=== PATIENT | male | born 2000 | race Caucasian/White ===

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

== ENCOUNTER 2022-09-10 10:09 | Emergency (ER) | payer SELFPAY ==
[~2022-09-10] VITALS: Ht 175 cm; Wt 100.0 kg
[~2022-09-10 10:09] MED LIST changes: +CYCL10TA25 PO; -CYCL10TA9 PO; +HYDR-4226 PO; -HYDR-757 PO; +NAPR-1071 PO; +NAPR-915; +NAPR-915 PO; -NAPR500T PO; -NAPR500T3; -NAPR500T3 PO; -OMEP40CA36 PO; +OMEP40CA6 PO; -SULF1TAB35 PO; +SULF1TAB38 PO
--- NOTE | 2022-09-10 10:41 | ED Cough/URI ---
General Chief Complaint: Cough/Cold/Flu Symptoms Stated Complaint: VOMITING/CHILLS/BODYACHES/SORE THROAT Nursing Triage Note: PT AMB TO RM 10 PT CO OF FEVERS, COUGH, N/V FOR 2 DAYS (ODILON WOLF) History of Present Illness Date Seen by Provider: Sep 10, 2022 Time Seen by Provider: 10:26 Initial Comments 22 yo male presents to the ED with a chief complaint of productive cough with green sputum since Sunday. He says that he has had greater than 10 episodes of nonbloody vomiting in the past two days and has been unable to keep any food or fluids down. Only has had one cup of water in the past two days. Pt reports associated subjective fever, N/V, RLQ dull abdominal pain without radiation, lightheadedness/dizziness, and SOB. Denies CP and ear pain. No sick contacts. Pt has not received flu vaccine. Has been taking Tylenol and Mucinex and his last d ose was yesterday morning at 10am. No other complaints. (ODILON WOLF) Allergies and Home Medications Allergies Coded Allergies: No Known Drug Allergies (Unverified , 10/21/14) Patient Home Medication List Home Medication List Reviewed: Yes (ODILON WOLF) Ibuprofen (Ibuprofen) 600 Mg Tablet, 600 MG PO 3 times a day Prescribed by: ALONZO MIDDLETON on 08/28/16921 [Flexeril] , 20 Twice a day Prescribed by: ALONZO MIDDLETON on 08/28/16921 Review of Systems Review of Systems Constitutional: malaise EENTM: no symptoms reported Respiratory: cough, short of breath Cardiovascular: no symptoms reported Gastrointestinal: RLQ, abdominal pain (RLQ), loss of appetite, nausea, vomiting Genitourinary: no symptoms reported Musculoskeletal: no symptoms reported Skin: no symptoms reported Psychiatric/Neurological: No Symptoms Reported Hematologic/Lymphatic: No Symptoms Reported Immunological/Allergic: no symptoms reported (ODILON WOLF) Past Yfvxwgu-Vqwpqh-Lctkgl Hx Patient Social History Tobacco Use?: Yes Tobacco type used: Cigarettes Smoking Status: Current Everyday Smoker Substance use?: Yes Substance type: Marijuana Substance frequency: Daily Alcohol Use?: No Pt feels they are or have been: No (ODILON WOLF) Immunizations Up To Date Tetanus Booster (TDap): Less than 5yrs PED Vaccines UTD: Yes Influenza Vaccine Up-to-Date: No; Not Current First/Initial COVID19 Vaccinat: YES COVID19 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 oz. [id number]; 32.00 BMI Method:Stated General Appearance: WD/WN, no apparent distress HEENT: PERRL/EOMI, normal ENT inspection, TMs normal, pharynx normal Neck: non-tender, full range of motion, supple, normal inspection Respiratory: chest non-tender, lungs clear, normal breath sounds, no respiratory distress, no accessory muscle use Cardiovascular: regular rate, rhythm, no edema, no gallop, no JVD, no murmur Gastrointestinal: normal bowel sounds, soft, no organomegaly, no pulsatile mass, tenderness (RLQ) Extremities: normal range of motion, non-tender, normal inspection, no pedal edema, no calf tenderness 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, no motor/sensory deficits, alert, normal mood/affect, oriented x 3 Skin: normal color, warm/dry Lymphatic: no adenopathy (ODILON WOLF) Progress/Results/Core Measures Suspected Sepsis SIRS Temperature: Pulse: 121 Respiratory Rate: 16 Blood Pressure 131 /62 Mean: 85 (ODILON WOLF) Results/Orders Lab Results Laboratory Tests Test 09/10/22 10:17 Range/Units Influenza Type A (RT-PCR) Detected H Not Detecte Influenza Type B (RT-PCR) Not Detected Not Detecte SARS-CoV-2 RNA (RT-PCR) Not Detected Not Detecte (JESSICA CALDWELL MD) My Orders Orders - JESSICA CALDWELL MD Covid 19 Inhouse Test (09/10/22 10:40) Influenza A And B By Pcr (09/10/22 10:40) Isolation Central Supply Req (09/10/22 10:40) Ondansetron Oral Dissolve Tab (Zofran (09/10/22 10:47) Ibuprofen Tablet (Motrin Tablet) (09/10/22 11:30) (JESSICA CALDWELL MD) Vital Signs/I&O 09/10/22 10:15 Temp 37.5 Pulse 121 Resp 16 B/P (MAP) 131/62 (85) Pulse Ox 96 O2 Delivery Room Air (JESSICA CALDWELL MD) Vital Signs/I&O Capillary Refill : Less Than 3 Seconds (ODILON WOLF) Blood Pressure Mean: 85 Progress Note : Time: 11:23 Progress Note Patient seen and examined by me, I have reviewed the medical student's documentation and agree with it as stated. 22-year-old sick for 2 days with flulike symptoms. Taking azvd-fvw-epsdhox medications with minimal relief of symptoms. UnAble to tolerate oral intake - many episodes of vomiting.. Complaining of significant body aches, malaise, intermittent fever and productive cough. Assessment, well-developed well-nourished 22-year-old male, tachycardic in the 120s, mildly dry oral mucosa. No respiratory distress. Nontender abdomen. Normal neurologic exam. No focal evidence of bacterial infection. Flu A positive. As he is right at 2 days of symptomatology we will start him on Tamiflu and send a prescription for Zofran to [facility]. Return precautions provided. He verbalized understanding. All questions are sought and answered. (JESSICA CALDWELL MD) Departure Impression Primary Impression: Influenza A Disposition: 01 HOME, SELF-CARE Condition: Stable Departure-Patient Inst. Decision time for Depature: 11:25 (JESSICA CALDWELL MD) Referrals: [facility] (PCP/Family) Primary Care Physician Patient Instructions: Flu, Adult (DC) Add. Discharge Instructions: Use the Zofran, 8 mg tablets every 8 hours as needed for nausea. Sip lots of clear liquids throughout the day today. Merrick diet and slowly advance as tolerated. We have given you the Tamiflu take-home pack. You will need to take 1 of these twice a day until they are gone. Pmhd-xmi-rlpjpmj ibuprofen 3 tablets which is 600 mg every 6 hours with food. You can alternate with extra strength Tylenol 2 tablets every 6 hours as well for fever and body aches. Return to the emergency room if the medication to help with your nausea does not help, if you develop shortness of breath, high fever that is not relieved with Tylenol or ibuprofen or any other emergent, concerning symptoms. Scripts Ondansetron (Ondansetron Odt) 8 Mg Tab.rapdis 8 MG SL Q8H PRN for NAUSEA/VOMITING, #20 TAB Prov: JESSICA CALDWELL MD 09/10/22 Work/School Note: Work Release Form Date Seen in the Emergency Department: Sep 10, 2022 Return to Work: Sep 13, 2022 Verification and Attestation of Medical Student E/M Service A medical student performed and documented this service in my presence. I reviewed and verified all information documented by the medical student and made modifications to such information, when appropriate. I personally performed the physical exam and medical decision making. Jessica Caldwell, Sep 10, 2022,11:27 (JESSICA CALDWELL MD) Copy Copies To 1: KEHINDE SOUZA ANISHA T Sep 10, 2022 10:41 JESSICA CALDWELL MD Sep 10, 2022 11:27
[2022-09-10] MEDS ORDERED: ONDANSETRON 4 MG (ZOFRAN) ORAL DISSOLVE TAB PO STA (10:47)
[2022-09-10] MEDS ORDERED: RX-OSELTAMIVIR 75 MG (TAMIFLU) BOX OF 10 PO STA (11:23)
[2022-09-10] MEDS ORDERED: ONDA8TAB13 SL (11:27)
[2022-09-10] MEDS ORDERED: IBUPROFEN 600 MG (MOTRIN) TAB PO ONE (11:30)
[2022-09-10 11:34] VITALS: BP 131/62
== END 2022-09-10 11:37 | disposition home or self-care (01) ==
LOC: EDUNIT# 10:09 → ER 10:12
DX: J10.1 Influenza due to other identified influenza virus with other respiratory manifestations (principal); R00.0 Tachycardia, unspecified; F17.210 Nicotine dependence, cigarettes, uncomplicated; Z20.822 Contact with and (suspected) exposure to COVID-19
CPT/HCPCS: 87636; 99283